=== PATIENT | female | born 1955 | race Asian ===

== ENCOUNTER 2018-05-15 09:11 | Outpatient (CLI) | payer OTHER ==
--- NOTE | 2018-05-16 09:05 | Mammography Report ---
BILATERAL DIGITAL SCREENING MAMMOGRAM with CAD: 05/15/18 09:11:00 CLINICAL: Routine screening. COMPARISON:09/08/14 FINDINGS: The breasts are heterogeneously dense, which may obscure small masses.The previously confirmed left sebaceous cyst at 8 o'clock 9 cm from the nipple is larger compared to the last exam. No mass, architectural distortion or suspicious calcifications. IMPRESSION: No mammographic evidence of malignancy. A benign left lower sebaceous cyst. BI-RADS CATEGORY: 2 - - Benign RECOMMENDATION: Routine mammographic screening in one year. COMMENT: Patient follow-up letters are generated by our [employer] application.
== END 2018-05-15 09:12 | disposition home or self-care (01) ==
LOC: SPVWC 09:11
PROVIDERS: ATTEND Obstetrics & Gynecology
DX: Z12.31 Encounter for screening mammogram for malignant neoplasm of breast (principal)
CPT/HCPCS: 77067

== ENCOUNTER 2021-06-21 13:27 | Outpatient (CLI) | payer OTHER ==
--- NOTE | 2021-06-21 15:43 | Mammography Report ---
DIGITAL SCREENING MAMMOGRAM WITH TOMOSYNTHESIS WITH CAD, 06/21/2021 CLINICAL INFORMATION / INDICATION: Screening TECHNIQUE: Digital bilateral 2D and 3D mammography with tomosynthesis was obtained in the craniocaud al and mediolateral oblique projections. Computer-Aided Detection (CAD) analysis was used for interp retation of this study. COMPARISON: 05/15/2018, 09/08/2014 FINDINGS: Breast Density: The breasts are extremely dense, which lowers the sensitivity of mammography. No dominant mass, suspicious calcifications, or architectural distortion in the right breast. A superficial lesion in the far inferior medial left breast has increased in prominence. In 2017 and this was present and in 2013 mild thickening was seen in this area with the region marked as an area of interest. Per the report in 2013, ultrasound showed this to be a benign cyst sebaceous cyst. IMPRESSION: No mammographic evidence of malignancy. Follow up recommendation: Routine yearly BI-RADS Category 2: Benign. A "normal" or negative report should not discourage follow up or biopsy of a clinically significant f inding. A written summary of these findings will be mailed to the patient. The patient will be entered into a mammography reporting system which will generate a reminder letter for the patient's next appointmen t at the appropriate interval. The [employer] recommends yearly mammograms starting at age 40 and continuing as l jamshid as a woman is in good health. Breast MRI is recommended for women with an approximate 20-25% or greater lifetime risk of breast cancer, including women with a strong family history of breast or ova bibiana cancer or who have been treated for Hodgkin's disease. Signer Name: Guillermo Amos MD Signed: 06/21/2021 3:39 PM Workstation Name: [id number]
== END 2021-06-21 13:28 | disposition home or self-care (01) ==
LOC: SPVWC 13:27
PROVIDERS: ATTEND Obstetrics & Gynecology
DX: Z12.31 Encounter for screening mammogram for malignant neoplasm of breast (principal)
CPT/HCPCS: 77063; 77067

== ENCOUNTER 2022-08-04 09:40 | Outpatient (CLI) | payer MEDICARE ==
--- NOTE | 2022-08-05 08:24 | Mammography Report ---
DIGITAL SCREENING MAMMOGRAM WITH CAD, 08/04/2022 CLINICAL INFORMATION / INDICATION: Routine screening mammography. TECHNIQUE: Digital bilateral 2D mammography was obtained in the craniocaudal and mediolateral obliqu e projections. This examination was interpreted with the benefit of Computer-Aided Detection analysis . COMPARISON: 06/21/2021, 05/15/2018 FINDINGS: Breast Density: The breasts are heterogeneously dense, which may obscure small masses. No dominant mass, suspicious calcifications, or architectural distortion in either breast. Please not e that there is a benign, but enlarging, dermal mass in the inferior left breast at 7:00. The appeara nce is most consistent with an enlarging sebaceous cyst. No significant interval change. IMPRESSION: No mammographic evidence of malignancy. Enlarging benign left dermal mass most likely gus aceous cyst. Follow up recommendation: Routine yearly screening mammogram. BI-RADS Category 2: BENIGN. A "normal" or negative report should not discourage follow up or biopsy of a clinically significant f inding. A written summary of these findings will be mailed to the patient. The patient will be entered into a mammography reporting system which will generate a reminder letter for the patient's next appointmen t at the appropriate interval. The [employer] recommends yearly mammograms starting at age 40 and continuing as l jamshid as a woman is in good health. Breast MRI is recommended for women with an approximate 20-25% or greater lifetime risk of breast cancer, including women with a strong family history of breast or ova bibiana cancer or who have been treated for Hodgkin's disease. Signer Name: Maria Victoria Kim MD Signed: 08/05/2022 8:20 AM Workstation Name: [id number]
== END 2022-08-04 09:41 | disposition home or self-care (01) ==
LOC: SPVWC 09:40
PROVIDERS: ATTEND Obstetrics & Gynecology
DX: Z12.31 Encounter for screening mammogram for malignant neoplasm of breast (principal)
CPT/HCPCS: 77067